=== PATIENT | female | born 1960 | race Caucasian/White ===

== ENCOUNTER 2020-02-27 10:14 | Emergency (ER) | payer MEDICAID ==
[~2020-02-27] VITALS: Ht 165.1 cm; Wt 68.0 kg
[2020-02-27] MEDS ORDERED: IBUPROFEN 800MG TABLET PO ONE (11:00)
[2020-02-27 11:17] VITALS: BP 164/91
== END 2020-02-27 13:25 | disposition home or self-care (01) ==
LOC: ER 10:24
DX: S10.83XA Contusion of other specified part of neck, initial encounter (principal); S30.0XXA Contusion of lower back and pelvis, initial encounter; M25.552 Pain in left hip; W01.0XXA Fall on same level from slipping, tripping and stumbling without subsequent striking against object, initial encounter; Y93.89 Activity, other specified; Y92.512 Supermarket, store or market as the place of occurrence of the external cause
CPT/HCPCS: 72100; 99283